=== PATIENT | female | born 1995 | race Two or more races ===

== ENCOUNTER 2019-12-06 13:05 | Inpatient (IN) | payer OTHER ==
[2019-12-06] MEDS ORDERED: BETAMET ACET/BETAMET NA PH 30 MG/5 ML VIAL ONE (15:22)
[2019-12-06] MEDS ORDERED: AMPICILLIN SODIUM 2 GM VIAL ONE (15:23)
[2019-12-06] MEDS ORDERED: MAGNESIUM 4GM/H20 - 4 GM/100 ML IVPB IVPB ONE (15:23)
[2019-12-06] MEDS ORDERED: MAGNESIUM SULFATE 20GM/500ML - 20 GM/500 ML INFUS.BAG ONE (15:23)
[2019-12-06] MEDS ORDERED: AMPICILLIN - 2 GM in SODIUM CHLORIDE 100 ML IVPB ONE (15:43)
[2019-12-06] MEDS ORDERED: MAGNESIUM 4GM/H20 - 4 GM/100 ML IVPB IVPB SCH (15:45)
[2019-12-06] MEDS ORDERED: MAGNESIUM SULF 50% (8.12 MEQ/2 ML-1 GM VIAL) IVPB ONE (15:49)
[2019-12-06] MEDS ORDERED: BETAMET ACET/BETAMET NA PH 30 MG/5 ML VIAL IM ONE (15:49)
--- NOTE | 2019-12-06 15:54 | HP ---
Past Medical History - Primary Care Physician PCP:: Candelario Sprague - Admission Chief Complaint: Pain and spoting History of Present Illness: 24 yo EDC 01/12/2020 EGA 34.5 weeks presents to LD c/o spotting and painful UC Pt has a h/o CD @ 34 weeks for severe PIH on 11/2017 Desires History Source: Patient Limitations to Obtaining History: No Limitations - Past Medical History ...: 2 ...Para: 1 ...Term: 0 ...: 1 ...Spon : 0 ...Induced : 0 ...Living Children: 1 ...LMP: 04/07/19 ... Weeks Gestation by Dates: 34.5 ...EDC by Dates: 12/13/19 - Past Surgical History Past Surgical History: Yes: Hx Myomectomy: No Hx Transabdominal Cerclage: No - Smoking History Smoking history: Never smoked Have you smoked in the past 12 months: No - Alcohol/Substance Use Hx Alcohol Use: No History of Substance Use: reports: None - Social History Usual Living Arrangement: Yes: With Significant Other Do you think of yourself as: Straight/Heterosexual ADL: Independent History of Recent Travel: No Home Medications - Allergies Allergies/Adverse Reactions: Allergies Allergy/AdvReac Type Severity Reaction Status Date / Time No Known Allergies Allergy Verified 12/06/19 16:23 - Home Medications Home Medications: Ambulatory Orders Tablet 1 tab PO DAILY 12/06/19 Family Medical History Family History: Unremarkable Review of Systems - Review of Systems Constitutional: reports: No Symptoms Eyes: reports: No Symptoms HENT: reports: No Symptoms Neck: reports: No Symptoms Cardiovascular: reports: No Symptoms Respiratory: reports: No Symptoms Gastrointestinal: reports: No Symptoms Genitourinary: reports: Pain, Vaginal Bleeding Breasts: reports: No Symptoms Reported Musculoskeletal: reports: No Symptoms Integumentary: reports: No Symptoms Neurological: reports: No Symptoms Endocrine: reports: No Symptoms Hematology/Lymphatic: reports: No Symptoms Psychiatric: reports: No Symptoms 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 - Maternity Vital Signs: Vital Signs Temperature 98.1 F 12/06/19 14:40 Pulse Rate 99 H 12/06/19 14:40 Respiratory Rate 17 12/06/19 14:40 Blood Pressure 105/72 12/06/19 14:40 O2 Sat by Pulse Oximetry (%) - Abdominal Exam/OB Fundal Height: 35 Number of Fetuses: Single Presentation: Vertex Contractions: Yes Regularity: Irregular Intensity: Mild/Mod Monitor Mode: External Heart Rate (range): 140 Heart Rate Location: [facility] Category: I Accelerations: Uniform Decelerations: None - Vaginal Exam/OB Vaginal Bleeding: Light Dilatation (cm): 1 Effacement (%): 100 Amniotic Membrane Status: Intact Station: -1 - 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 Musculoskeletal: Yes: WNL Extremities: Yes: WNL Edema: No Integumentary: Yes: WNL ...Motor Strength: WNL Psychiatric: Yes: WNL Hemorrhage Risk Assessment - Risk Factors Medium Risk Factors: Yes: Prior , uterine surgery,or multiple laparotomies Risk Score: 1 Risk Level: Medium Risk Problem List - Problems (1) 34 weeks gestation of Code(s): Z3A.34 - 34 WEEKS GESTATION OF (2) Previous delivery, antepartum condition or complication Code(s): O34.219 - MATERNAL CARE FOR UNSP TYPE SCAR FROM PREVIOUS DEL (3) High risk due to history of labor in third trimester Code(s): O09.213 - SUPRVSN OF PREG W HISTORY OF PRE-TERM LABOR, THIRD TRIMESTER Assessment/Plan Admit to LD [place] with Magnesium sulfate - bolus 4gm, continue 2 gm Steroids Antibiotic Official sono - weight, localization of placenta Desires
[2019-12-06] MEDS ORDERED: ELECTROLYTE-148 SOLN 1,000 ML IV SCH ×2 (16:00→19:45)
[2019-12-06 16:43] VITALS: BMI 29.2
[2019-12-06 17:06] LABS: BASO % 0.2 % (0-2.0); EOS % 0.1 % (0-4.5); HEMATOCRIT 43.4 % (32.4-45.2); HEMOGLOBIN 14.8 GM/dL (10.7-15.3); LYMPH % 19.2 % (8-40); MCH 30.7 pg (25.7-33.7); MCHC 34.1 g/dl (32.0-36.0); MEAN CELL VOLUME 89.9 fl (80-96); MEAN PLT VOLUME 10.1 fl (7.5-11.1); MONO % 7.3 % (3.8-10.2); NEUT % 73.2 % (42.8-82.8); PLATELET COUNT 130 K/MM3 (134-434); RBC 4.83 M/mm3 (3.60-5.2); RDW 13.3 % (11.6-15.6)
[2019-12-06 17:11] LABS: INR 0.86 (0.83-1.09); PROTHROMBIN TIME (PATIENT) 10.1 SEC (9.7-13.0)
[2019-12-06 17:14] LABS: ACTIVATED PTT 31.1 SECONDS (25.2-36.5)
[2019-12-06] MEDS ORDERED: MAGNESIUM SULFATE 20GM/500ML - 20 GM/500 ML INFUS.BAG IVPB SCH (17:15)
[2019-12-06 17:27] LABS: BLOOD UREA NITROGEN 9.2 mg/dL (7-18); CALCIUM 7.5 mg/dL (8.5-10.1); CREATININE 0.5 mg/dL (0.55-1.3); POTASSIUM 4.8 mmol/L (3.5-5.1)
[2019-12-06] MEDS: AMPICILLIN - 1 GM in SODIUM CHLORIDE 100 ML IVPB SCH (20:20)
[2019-12-06] MEDS ORDERED: AMPICILLIN SODIUM 1 GM VIAL ONE (20:22)
--- NOTE | 2019-12-06 22:44 | PN ---
Progress Note (short form) - Note Progress Note: Patient comfortable in bed. VSS, afebrile EFM - Baseline 130/min, moderate variability, accelerations, no decelerations Tocos - irritability Pelvic - deferred. Plan -Late gestation with labor Prior delivery, desires vaginal after delivery Awaiting second dose of steroid Continue management.
[2019-12-07] MEDS ORDERED: AMPICILLIN SODIUM 1 GM VIAL ONE ×6 (00:01→21:48)
[2019-12-07] MEDS ORDERED: MAGNESIUM SULFATE 20GM/500ML - 20 GM/500 ML INFUS.BAG ONE (01:43)
[2019-12-07] MEDS: AMPICILLIN - 1 GM in SODIUM CHLORIDE 100 ML IVPB SCH ×6 (04:00→20:45)
--- NOTE | 2019-12-07 06:37 | PN ---
Progress Note (short form) - Note Progress Note: Called to evaluate patient because of change in baseline. I came to see patient; she's sleeping comfortably in bed. BP : 90 / 49 EFM - Baseline 110 to 120 Bpm, moderate variability, accelerations, occasional variable decelerations Tocos - No contractions Pelvic - 1/70/ -2 Bloody discharge ASS / Plan - Late gestation with labor Prior delivery, desires vaginal after delivery IV bolus Continue close monitoring
[2019-12-07] MEDS ORDERED: MAGNESIUM SULFATE 20GM/500ML - 20 GM/500 ML INFUS.BAG IV SCH (10:30)
--- NOTE | 2019-12-07 10:43 | PN ---
Progress Note (short form) - Note Progress Note: Sent by Dr Sprague for contractions per sign out Patient without complaints, no contractions Due for second dose of betamethasone at 3.15pm OE- VS- wnl Lungs clear Abdomen soft nontender, gravid FHR- 120, moderate variability, positive accelerations, no decelerations, cat1 [place]- no contractions Reflexes2+ VE-- 1CM/60%/-2, intact US- bpp-8/8, YVETTE- 12.4, EFW- 2472 gm A/P- IUP@ 34w6d, Thrombocytopenia in Mag level pending Magnesium stopped Close monitoring CBC,CMP,UA drawn close observation Urine output adequate per nurse,1600cc voided for last shift per nurse,
[2019-12-07] MEDS ORDERED: DEXTROSE 5%-LACTATED RINGERS 1,000 ML IV SCH (10:45)
[2019-12-07 10:48] LABS: BASO % 0.1 % (0-2.0); HEMOGLOBIN 12.8 GM/dL (10.7-15.3); LYMPH % 18.5 % (8-40); MCH 30.9 pg (25.7-33.7); MCHC 34.6 g/dl (32.0-36.0); MEAN CELL VOLUME 89.1 fl (80-96); MEAN PLT VOLUME 9.3 fl (7.5-11.1); MONO % 4.1 % (3.8-10.2); NEUT % 77.3 % (42.8-82.8); PLATELET COUNT 147 K/MM3 (134-434); RBC 4.15 M/mm3 (3.60-5.2); RDW 13.2 % (11.6-15.6); WHITE BLOOD COUNT 5.1 K/mm3 (4.0-10.0)
[2019-12-07 11:47] LABS: ALBUMIN 2.2 g/dl (3.4-5.0); BILIRUBIN,TOTAL 0.4 mg/dL (0.2-1); BLOOD UREA NITROGEN 8.2 mg/dL (7-18); CREATININE 0.5 mg/dL (0.55-1.3); POTASSIUM 3.4 mmol/L (3.5-5.1); TOT PROT 5.5 g/dl (6.4-8.2)
[2019-12-07 11:50] LABS: CALCIUM 6.2 mg/dL (8.5-10.1)
[2019-12-07 12:33] LABS: BASO % 0.1 % (0-2.0); HEMATOCRIT 36.9 % (32.4-45.2); HEMOGLOBIN 12.7 GM/dL (10.7-15.3); MCH 30.7 pg (25.7-33.7); MCHC 34.4 g/dl (32.0-36.0); MEAN CELL VOLUME 89.2 fl (80-96); MEAN PLT VOLUME 9.3 fl (7.5-11.1); NEUT % 77.9 % (42.8-82.8); PLATELET COUNT 142 K/MM3 (134-434); RBC 4.14 M/mm3 (3.60-5.2); WHITE BLOOD COUNT 5.6 K/mm3 (4.0-10.0)
[2019-12-07 12:56] LABS: EPI CELLS 4 /uL (0-25.1); HYALINE CASTS 1 /uL (0-3.1); URINE APPEARANCE CLEAR; URINE BACTERIA 10 /uL (0-1359); URINE BILIRUBIN NEGATIVE (NEGATIVE); URINE COLOR YELLOW; URINE GLUCOSE (UA) NEGATIVE (NEGATIVE); URINE KETONE 1+ (NEGATIVE); URINE LEUK ESTERASE NEGATIVE (NEGATIVE); URINE NITRITE NEGATIVE (NEGATIVE); URINE PROTEIN NEGATIVE (NEGATIVE); URINE RBC 4 /uL (0-23.9); URINE UROBILINOGEN 0.2 mg/dL (0.2-1.0); URINE WBC 1 /uL (0-25.8)
[2019-12-07 13:08] LABS: ALBUMIN 2.2 g/dl (3.4-5.0); BILIRUBIN,TOTAL 0.4 mg/dL (0.2-1); BLOOD UREA NITROGEN 8.1 mg/dL (7-18); CREATININE 0.5 mg/dL (0.55-1.3); MAGNESIUM 4.6 mg/dL (1.8-2.4); POTASSIUM 3.5 mmol/L (3.5-5.1); TOT PROT 5.4 g/dl (6.4-8.2)
[2019-12-07 13:26] LABS: CALCIUM 6.5 mg/dL (8.5-10.1)
[2019-12-07] MEDS ORDERED: CALCIUM GLUCONATE 10% - 1,000 MG/10 ML VIAL IVPUSH ONE (14:33)
--- NOTE | 2019-12-07 15:28 | PN ---
Teaching Attending Note Name of Resident: Vincent Moura ATTENDING PHYSICIAN STATEMENT I saw and evaluated the patient. I reviewed the resident's note and discussed the case with the resident. I agree with the resident's findings and plan as documented. SUBJECTIVE: 24yo 34 weeks who presented originally due to contractions that were occurring. Patient was admitted to [facility] and was started on Mg via IV due to her premature contractions. On routine Chem-10 she was noted to have hypocalcemia with hypoalbuminemia and so we were consulted for medical evaluation. Patient at time of exam had no complaints. Her contractions had ceased and she feels markedly better. Pt was found to be COVID-19 PCR positive, however she is asymptomatic at this time. Patient denies any fever/chills, cough, SOB, CP, palpitations, abdominal pain, diarrhea/constipation, muscle cramping or twitching, numbness/tingling, weakness. PMHX: As above PSHx: Prior SoHX: No tobacco, alcohol, illicit substances FamHx: No thyroid, parathyroid, or bone pathology in family. OBJECTIVE: Vital Signs Temperature 98 F 12/07/19 17:00 Pulse Rate 95 H 12/07/19 18:00 Respiratory Rate 20 12/07/19 18:00 Blood Pressure 109/67 12/07/19 18:00 O2 Sat by Pulse Oximetry (%) 98 12/07/19 18:00 PE: Gen: NAD, awake, alert, oriented x3 HEENT: NC/AT, EOMI, NALLELY, MMM LUNG: CTA b/l without wheezes/rales CARD: RRR no murmurs ABD: Gravid, + BS, no TTP, no guarding EXT: No edema, no calf tenderness Neuro: Nonfocal without any tremoring CBC, BMP 12/07/19 12:05 12/07/19 12:05 ASSESSMENT AND PLAN: Hypocalcemia Hypoalbuminemia COVID-19 Positivity Contractions --Correct Ca for hypoalbuminemia is 7.9 --Replete 1gm Calcium gluconate IVPB --Ordered PTH and Vitamin D level for complete picture for r/o hypoparathyroidism --Recommend discontinuation of IVF if OB agrees to avoid dilution of Ca lvl --Can repeat Ca tomorrow --Maintain Isolation due to COVID positivity; asympomatic --Rest per [facility] service Discussed with Dr. Noriega We will continue to follow the patient. DO Caterina Grewal
[2019-12-07] MEDS ORDERED: BETAMET ACET/BETAMET NA PH 30 MG/5 ML VIAL IM ONE (16:30)
--- NOTE | 2019-12-07 16:51 | CONSULT ---
Consultation: REQUESTING PROVIDER: Dr. Noriega CONSULT REQUEST: We have been asked to medically evaluate this patient for (hypocalcemia). HISTORY OF PRESENT ILLNESS: 24 F at 34 weeks , previous c section, presented to the hospital for premature contractions w/ bloody discharge. Upon arrival pt was stable but had premature contraction and was given magnesium IV, steriods and ampicillin. Baseline HR was 110 to 120 Bpm, moderate variability, accelerations, occasional variable decelerations. Pt was being managed for Late gestation with labor. Laboratory results showed hypocalcemia to 6.2 and medical consult was placed. Denies f/c/n/v/d/sob, cp, abdominal pain, numbness or tingling. REVIEW OF SYSTEMS: Denies f/c/n/v/d/sob, cp, abdominal pain, numbness or tingling. PHYSICAL EXAMINATION Vital Signs - 24 hr 12/06/19 12/06/19 12/06/19 17:00 18:00 19:00 Temperature 98.2 F 97.9 F 98.1 F Pulse Rate 82 88 92 H Respiratory 20 20 20 Rate Blood Pressure 108/63 113/70 115/68 GENERAL: Awake, alert, and fully oriented, in no acute distress. EYES: Pupils equal, round and reactive to light, extraocular movements intact, sclera anicteric, conjunctiva clear. EARS, NOSE, THROAT: Moist mucous membranes. Chvosteks sign negative, trusseau sign negative NECK: Normal range of motion, supple without lymphadenopathy, JVD, or masses. LUNGS: Breath sounds equal, clear to auscultation bilaterally. No wheezes, and no crackles. HEART: Regular rate and rhythm, normal S1 and S2 without murmur, rub or gallop. ABDOMEN: Soft, nontender, not distended, normoactive bowel sounds, no guarding, no rebound, no masses. heart rate monitor in place MUSCULOSKELETAL: No CVA tenderness. UPPER EXTREMITIES: 2+ pulses, warm, well-perfused.No peripheral edema. LOWER EXTREMITIES: 2+ pulses, warm, well-perfused. No calf tenderness. No peripheral edema. NEUROLOGICAL: Cranial nerves II-XII intact. PSYCHIATRIC: Cooperative. Good eye contact. Appropriate mood and affect. SKIN: Warm, dry, normal turgor, no rashes or lesions noted. Laboratory Results - last 24 hr 12/06/19 12/06/19 12/06/19 16:00 16:00 16:00 WBC 5.0 RBC 4.83 Hgb 14.8 Hct 43.4 MCV 89.9 MCH 30.7 MCHC 34.1 RDW 13.3 Plt Count 130 L MPV 10.1 Absolute Neuts (auto) 3.7 Neutrophils % 73.2 Lymphocytes % 19.2 Monocytes % 7.3 Eosinophils % 0.1 Basophils % 0.2 Nucleated RBC % 1 H PT with INR 10.10 INR 0.86 PTT (Actin FS) 31.1 Sodium 138 Potassium 4.8 Chloride 108 H Carbon Dioxide 21 Anion Gap 10 BUN 9.2 Creatinine 0.5 L Est GFR (CKD-EPI)AfAm 157.00 Est GFR (CKD-EPI)NonAf 135.46 Random Glucose 66 L Calcium 7.5 L Magnesium Total Bilirubin AST ALT Alkaline Phosphatase Total Protein Albumin Urine Color Urine Appearance Urine pH Ur Specific [place] Urine Protein Urine Glucose (UA) Urine Ketones Urine Blood Urine Nitrite Urine Bilirubin Urine Urobilinogen Ur Leukocyte Esterase Urine WBC (Auto) Urine RBC (Auto) Urine Casts (Auto) U Epithel Cells (Auto) Urine Bacteria (Auto) Syphilis Serology COVID-19 (JOSE) HIV Ag/Ab Combo Qual Blood Type Antibody Screen 12/06/19 12/06/19 12/06/19 16:00 16:00 16:20 WBC RBC Hgb Hct MCV MCH MCHC RDW Plt Count MPV Absolute Neuts (auto) Neutrophils % Lymphocytes % Monocytes % Eosinophils % Basophils % Nucleated RBC % PT with INR INR PTT (Actin FS) Sodium Potassium Chloride Carbon Dioxide Anion Gap BUN Creatinine Est GFR (CKD-EPI)AfAm Est GFR (CKD-EPI)NonAf Random Glucose Calcium Magnesium Total Bilirubin AST ALT Alkaline Phosphatase Total Protein Albumin Urine Color Urine Appearance Urine pH Ur Specific [place] Urine Protein Urine Glucose (UA) Urine Ketones Urine Blood Urine Nitrite Urine Bilirubin Urine Urobilinogen Ur Leukocyte Esterase Urine WBC (Auto) Urine RBC (Auto) Urine Casts (Auto) U Epithel Cells (Auto) Urine Bacteria (Auto) Syphilis Serology Non-reactive COVID-19 (JOSE) Detected H HIV Ag/Ab Combo Qual Negative Blood Type O POSITIVE Antibody Screen Negative 12/06/19 12/07/19 12/07/19 20:20 02:00 08:08 WBC RBC Hgb Hct MCV MCH MCHC RDW Plt Count MPV Absolute Neuts (auto) Neutrophils % Lymphocytes % Monocytes % Eosinophils % Basophils % Nucleated RBC % PT with INR INR PTT (Actin FS) Sodium Potassium Chloride Carbon Dioxide Anion Gap BUN Creatinine Est GFR (CKD-EPI)AfAm Est GFR (CKD-EPI)NonAf Random Glucose Calcium Magnesium 5.7 H 6.7 H 6.9 H Total Bilirubin AST ALT Alkaline Phosphatase Total Protein Albumin Urine Color Urine Appearance Urine pH Ur Specific [place] Urine Protein Urine Glucose (UA) Urine Ketones Urine Blood Urine Nitrite Urine Bilirubin Urine Urobilinogen Ur Leukocyte Esterase Urine WBC (Auto) Urine RBC (Auto) Urine Casts (Auto) U Epithel Cells (Auto) Urine Bacteria (Auto) Syphilis Serology COVID-19 (JOSE) HIV Ag/Ab Combo Qual Blood Type Antibody Screen 12/07/19 12/07/19 12/07/19 10:30 10:30 11:00 WBC 5.1 RBC 4.15 Hgb 12.8 Hct 37.0 MCV 89.1 MCH 30.9 MCHC 34.6 RDW 13.2 Plt Count 147 MPV 9.3 Absolute Neuts (auto) 3.9 Neutrophils % 77.3 Lymphocytes % 18.5 Monocytes % 4.1 Eosinophils % 0.0 D Basophils % 0.1 Nucleated RBC % 0 PT with INR INR PTT (Actin FS) Sodium 140 Potassium 3.4 L Chloride 110 H Carbon Dioxide 16 L Anion Gap 15 BUN 8.2 Creatinine 0.5 L Est GFR (CKD-EPI)AfAm 157.00 Est GFR (CKD-EPI)NonAf 135.46 Random Glucose 118 H Calcium 6.2 L* Magnesium Total Bilirubin 0.4 AST 47 H ALT 47 Alkaline Phosphatase 208 H Total Protein 5.5 L Albumin 2.2 L Urine Color Yellow Urine Appearance Clear Urine pH 6.0 Ur Specific [place] 1.011 Urine Protein Negative Urine Glucose (UA) Negative Urine Ketones 1+ H Urine Blood 1+ H Urine Nitrite Negative Urine Bilirubin Negative Urine Urobilinogen 0.2 Ur Leukocyte Esterase Negative Urine WBC (Auto) 1 Urine RBC (Auto) 4 Urine Casts (Auto) 1 U Epithel Cells (Auto) 4 Urine Bacteria (Auto) 10 Syphilis Serology COVID-19 (JOSE) HIV Ag/Ab Combo Qual Blood Type Antibody Screen 12/07/19 12/07/19 12:05 12:05 WBC 5.6 RBC 4.14 Hgb 12.7 Hct 36.9 MCV 89.2 MCH 30.7 MCHC 34.4 RDW 13.0 Plt Count 142 MPV 9.3 Absolute Neuts (auto) 4.3 Neutrophils % 77.9 Lymphocytes % 17.0 Monocytes % 5.0 Eosinophils % 0.0 Basophils % 0.1 Nucleated RBC % 0 PT with INR INR PTT (Actin FS) Sodium 140 Potassium 3.5 Chloride 109 H Carbon Dioxide 19 L Anion Gap 12 BUN 8.1 Creatinine 0.5 L Est GFR (CKD-EPI)AfAm 157.00 Est GFR (CKD-EPI)NonAf 135.46 Random Glucose 125 H Calcium 6.5 L* Magnesium 4.6 H Total Bilirubin 0.4 AST 41 H ALT 46 Alkaline Phosphatase 205 H Total Protein 5.4 L Albumin 2.2 L Urine Color Urine Appearance Urine pH Ur Specific [place] Urine Protein Urine Glucose (UA) Urine Ketones Urine Blood Urine Nitrite Urine Bilirubin Urine Urobilinogen Ur Leukocyte Esterase Urine WBC (Auto) Urine RBC (Auto) Urine Casts (Auto) U Epithel Cells (Auto) Urine Bacteria (Auto) Syphilis Serology COVID-19 (JOSE) HIV Ag/Ab Combo Qual Blood Type Antibody Screen Active Medications Generic Name Dose Route Start Last Admin Trade Name Freq PRN Reason Stop Dose Admin Ampicillin Sodium 1 gm/ Sodium 100 mls @ 200 mls/hr 12/06/19 20:00 12/07/19 16:00 Chloride IVPB 200 mls/hr Q4H MOOK Administration Magnesium Sulfate 4 gm in 100 mls @ 200 mls/hr 12/06/19 15:45 12/06/19 15:50 Magnesium 4gm/H20 - IVPB 200 mls/hr ASDIR MOOK Administration Magnesium Sulfate 20 gm in 500 mls @ 25 mls/hr 12/06/19 17:15 12/06/19 16:20 Magnesium Sulfate 20gm/500ml - IVPB 50 mls/hr ASDIR MOOK Administration Magnesium Sulfate 20 gm in 500 mls @ 25 mls/hr 12/07/19 10:30 12/07/19 07:30 Magnesium Sulfate 20gm/500ml - IV 25 mls/hr ASDIR MOOK Administration Dextrose/Lactated Ringer's 1,000 mls @ 125 mls/hr 12/07/19 10:45 12/07/19 10:30 D5-Lr - IV 125 mls/hr ASDIR MOOK Administration ASSESSMENT/PLAN: 24 F at 34 weeks , previous c section, presented to the hospital for premature contractions w/ bloody discharge. Upon arrival pt was stable but had premature contraction and was given magnesium IV, steriods and ampicillin. Baseline HR was 110 to 120 Bpm, moderate variability, accelerations, occasional variable decelerations. Pt was being managed for Late gestation with labor. Laboratory results showed hypocalcemia to 6.2 and medical consult was placed. Denies f/c/n/v/d/sob, cp, abdominal pain, numbness or tingling. COVID positive. Upon evaluation, in the setting of negative physical exam finding and improving calcium levels, hypocalcemia is not concerning at this time. Likely 2/2 to steriod induced hypocalcemia via urinary excretion vs parathyroid disease. Will cont to monitor calcium levels, and supplement calcium gluconate for now. Will PTH and vit D to evaluate for parathyroid causes of hypocalcemia. Limit IVF as this can lower calcium levels. Will r/p calcium levels. Dispo: We will continue to follow the patient. Thank you for this consultative opportunity. ATTENDING PHYSICIAN STATEMENT I saw and evaluated the patient. I reviewed the resident's note and discussed the case with the resident. I agree with the resident's findings and plan as documented. SUBJECTIVE: OBJECTIVE: ASSESSMENT AND PLAN:
[2019-12-07] MEDS ORDERED: CALCIUM GLUCONATE 10% - 1,000 MG/10 ML VIAL IVPB ONE (16:56)
--- NOTE | 2019-12-07 18:27 | PN ---
Progress Note (short form) - Note Progress Note: Patient without complaints, labs reviewed Internal medicine on consult for low calcium Magnesium d/jay jay s/p 2doses of betamethasone Vs wnl FHR-130, positive accelerations, no declerations, moderate variability, cat1 [place]- no contractions Plan- continue monitoring, close observation. IM to follow for low calcium levels
[2019-12-08] MEDS ORDERED: AMPICILLIN SODIUM 1 GM VIAL ONE ×4 (00:05→16:30)
[2019-12-08] MEDS: AMPICILLIN - 1 GM in SODIUM CHLORIDE 100 ML IVPB SCH ×5 (00:20→16:30)
[2019-12-08 08:48] LABS: ALBUMIN 2.4 g/dl (3.4-5.0); BILIRUBIN,TOTAL 0.3 mg/dL (0.2-1); BLOOD UREA NITROGEN 12.2 mg/dL (7-18); CALCIUM 8.3 mg/dL (8.5-10.1); CREATININE 0.6 mg/dL (0.55-1.3); POTASSIUM 4.1 mmol/L (3.5-5.1)
[2019-12-08] MEDS ORDERED: CHOLECALCIFEROL (VIT D3) 1,000 UNIT (25 MCG) TABLET PO SCH (12:15)
[2019-12-08] MEDS ORDERED: CHOLECALCIFEROL (VIT D3) 1,000 UNIT (25 MCG) TABLET PO ONE (13:06)
--- NOTE | 2019-12-08 13:17 | PN ---
Progress Note (short form) - Note Progress Note: Patient resting comfortably FHR- 130, moderate variability, positive accelerations, no decelerations [place]- no contractions, contractions in earlier part of strip Followed up by Internal medicine Reevaluated by contract lead physician Dr Sprague this PM Nurse informed
--- NOTE | 2019-12-08 13:29 | PN ---
Teaching Attending Note Name of Resident: Darlyn Downey ATTENDING PHYSICIAN STATEMENT I saw and evaluated the patient. I reviewed the resident's note and discussed the case with the resident. I agree with the resident's findings and plan as documented. SUBJECTIVE: OBJECTIVE: ASSESSMENT AND PLAN:
--- NOTE | 2019-12-08 13:30 | PN ---
Progress Note (short form) - Note Progress Note: SUBJECTIVE: Feeling much better - no further abdominal discomfort/contractions. OBJECTIVE: Afebrile, Hemodynamically Stable. Last Vital Signs Temp Pulse Resp BP Pulse Ox 98.9 F 92 H 20 99/6 L 97 12/08/19 12:00 12/08/19 12:00 12/08/19 12:00 12/08/19 12:00 12/08/19 06:00 HEENT - Atraumatic, normocephalic. Heart - S1, S2, RRR Lungs - clear to auscultation Abdomen - Gravid abdomen, non-tender. Extremities - no edema, no calf tenderness. Neuro - AAO x 3. Tone/Power normal all extremities. Laboratory Results - last 24 hr 12/06/19 12/07/19 12/08/19 16:20 12:05 07:37 Sodium 140 Potassium 4.1 Chloride 110 H Carbon Dioxide 21 Anion Gap 9 BUN 12.2 Creatinine 0.6 Est GFR (CKD-EPI)AfAm 147.86 Est GFR (CKD-EPI)NonAf 127.58 Random Glucose 96 Calcium 6.5 L* 8.3 L Total Bilirubin 0.3 AST 36 ALT 49 Alkaline Phosphatase 228 H Total Protein 6.0 L Albumin 2.4 L COVID-19 (JOSE) Detected H Current Medications Generic Name Dose Route Start Last Admin Trade Name Freq PRN Reason Stop Dose Admin Ampicillin Sodium 1 gm/ Sodium 100 mls @ 200 mls/hr 12/06/19 20:00 12/08/19 12:00 Chloride IVPB 200 mls/hr Q4H MOOK Administration Home Medications Medication Instructions Recorded Tablet 1 tab PO DAILY 12/06/19 ASSESSMENT AND PLAN: 24 year old female at 35 weeks of gestation, presents wit contractions, found to have Calcium level 6.2 (corrected 7.5). incidentally, COVID positive, but asymptomatic. 1. Hypocalcemia ?sec to Vitamin D Deficiency - improved with IV Ca Gluconate No further symptoms. Contractions halted. Ca today 8.3 Vitamin D 19.5 PTH pending For Calcium and Vitamin D replacement in addition to pre- vitamins. Nephrology evaluated - will arrange for out-patient repeat labs on Monday 12/11 Medically clear for discharge on Vitamin D 1000-2000iU and Calcium 500mg supplementation. 2. COVID positive Asymptomatic. No SOB/fever/cough/hypoxia/myalgia No need for further hospitalization Also recommend Vitamin C 1000mg and Zinc 220mg supplementation. Thank you for the kind consideration of this consultation. Recommendations as above. Repeat Labs will be arranged for Thursday - patient to return to [facility] to have them drawn. Medicine will sign off. Visit type - Emergency Visit Emergency Visit: Yes ED Registration Date: 12/06/19 Care time: The patient presented to the Emergency Department on the above date and was hospitalized for further evaluation of their emergent condition. - New Patient This patient is new to me today: Yes Date on this admission: 12/08/19 - Critical Care Critical Care patient: No - Discharge Referral Referred to [facility] Med P.C.: No
[2019-12-08 16:04] VITALS: TEMP 98.5
--- NOTE | 2019-12-08 18:31 | CONSULT ---
Consult Consult Specialty:: Nephrology Reason for Consultation:: hypocalcemia - History of Present Illness Chief Complaint: presented with contractions and bloody discharge History of Present Illness: Pt is a 24 year old female at 34 weeks who presented with premature contraction and bloody discharge. She was found to be hypocalcemic and I was called to evaluate her. She has previous . SHe denies medical history. SHe says that she feel better today. She did respond to calcium supplements and calcium levels improved. She denies chest pain or palpitations. - History Source History Provided By: Patient - Past Surgical History Past Surgical History: Yes: - Alcohol/Substance Use Hx Alcohol Use: No History of Substance Use: reports: None - Smoking History Smoking history: Never smoked Have you smoked in the past 12 months: No - Social History ADL: Independent History of Recent Travel: No Home Medications - Allergies Allergies/Adverse Reactions: Allergies Allergy/AdvReac Type Severity Reaction Status Date / Time No Known Allergies Allergy Verified 12/06/19 16:23 - Home Medications Home Medications: Ambulatory Orders Tablet 1 tab PO DAILY 12/06/19 Family Medical History Family History: Unremarkable Review of Systems - Review of Systems Constitutional: reports: No Symptoms Eyes: reports: No Symptoms HENT: reports: No Symptoms Neck: reports: No Symptoms Cardiovascular: reports: No Symptoms Respiratory: reports: No Symptoms Gastrointestinal: reports: No Symptoms Genitourinary: reports: No Symptoms Musculoskeletal: reports: No Symptoms Integumentary: reports: No Symptoms Neurological: reports: No Symptoms Endocrine: reports: No Symptoms Hematology/Lymphatic: reports: No Symptoms Psychiatric: reports: No Symptoms 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 Vital Signs: Vital Signs Temperature 98.5 F 12/08/19 16:00 Pulse Rate 88 12/08/19 16:00 Respiratory Rate 20 12/08/19 16:00 Blood Pressure 102/67 12/08/19 16:00 O2 Sat by Pulse Oximetry (%) 97 12/08/19 06:00 Constitutional: Yes: Calm Eyes: Yes: Conjunctiva Clear HENT: Yes: Atraumatic Neck: Yes: Supple Cardiovascular: Yes: S1, S2 Respiratory: Yes: CTA Bilaterally Gastrointestinal: Yes: Soft Renal/: Yes: Other (gravid) Musculoskeletal: Yes: WNL Edema: No Neurological: Yes: Oriented Psychiatric: Yes: Oriented Labs: CBC, BMP 12/07/19 12:05 12/08/19 07:37 Laboratory Tests 12/06/19 12/06/19 12/07/19 16:00 16:20 07:40 Sodium Potassium Carbon Dioxide Creatinine Calcium Albumin PTH Intact Pending PTH Intact Intraop 0 m Urine Protein Syphilis Serology Non-reactive COVID-19 (JOSE) Detected H HIV Ag/Ab Combo Qual Negative 12/07/19 12/07/19 12/07/19 10:30 11:00 12:05 Sodium 140 Potassium 3.4 L Carbon Dioxide 16 L 19 L Creatinine 0.5 L 0.5 L Calcium 6.2 L* 6.5 L* Albumin 2.2 L 2.2 L PTH Intact PTH Intact Intraop 0 m Urine Protein Negative Syphilis Serology COVID-19 (JOSE) HIV Ag/Ab Combo Qual 12/07/19 12/08/19 17:45 07:37 Sodium Potassium Carbon Dioxide 21 Creatinine 0.6 Calcium 8.3 L Albumin 2.4 L PTH Intact Pending PTH Intact Intraop 0 m Pending Urine Protein Syphilis Serology COVID-19 (JOSE) HIV Ag/Ab Combo Qual Problem List - Problems (1) Hypocalcemia Code(s): E83.51 - HYPOCALCEMIA (2) 34 weeks gestation of Code(s): Z3A.34 - 34 WEEKS GESTATION OF Assessment/Plan Current Medications Generic Name Dose Route Start Last Admin Trade Name Zahida PRN Reason Stop Dose Admin Calcium Carbonate 500 mg 12/09/19 10:00 Os-Pietro 500mg - PO DAILY [facility] Cholecalciferol 1,000 unit 12/09/19 10:00 Vitamin D3 - PO DAILY [facility] Ampicillin Sodium 1 gm/ Sodium 100 mls @ 200 mls/hr 12/06/19 20:00 12/08/19 16:30 Chloride IVPB 200 mls/hr Q4H MOOK Administration Zinc Sulfate 220 mg 12/08/19 22:00 Orazinc - PO BID [facility] Impression 1. hypocalcemia 2. 34 weeks 3. permature contraction 4. positive covid results Plan - cont calcium supplements - calcium levels improved (correct for albumin) - will need to follow pth - recommend close follow up of calcium levels - pt is coming back to appointment on Thursday, I gave her a lab slip to have her calcium levels checked - follow up vit d levels as well - discussed with obgyn and medical team - pt seen earlier in the day around noon
[2019-12-08 18:34] VITALS: BP 107/76; PULSE 85
--- NOTE | 2019-12-08 18:48 | DS ---
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ination Vital Signs: Vital Signs Temperature 98.5 F 12/08/19 18:00 Pulse Rate 85 12/08/19 18:00 Respiratory Rate 20 12/08/19 18:00 Blood Pressure 107/76 12/08/19 18:00 O2 Sat by Pulse Oximetry (%) 97 12/08/19 06:00 Constitutional: Yes: Well Nourished Eyes: Yes: WNL HENT: Yes: WNL Neck: Yes: WNL Cardiovascular: Yes: WNL Respiratory: Yes: WNL Gastrointestinal: Yes: WNL Renal/: Yes: WNL Musculoskeletal: Yes: WNL Extremities: Yes: WNL Edema: No Peripheral Pulses WNL: Yes Integumentary: Yes: WNL Neurological: Yes: WNL ...Motor Strength: WNL Psychiatric: Yes: WNL Labs: CBC, BMP 12/07/19 12:05 12/08/19 07:37 Discharge Summary Problems reviewed: Yes Reason For Visit: ADMISSION OF PRELABOR Current Active Problems 34 weeks gestation of (Acute) High risk due to history of labor in third trimester (Acute) Hypocalcemia (Acute) Previous delivery, antepartum condition or complication (Acute) Condition: Stable - Instructions Referrals: Mahi Conti MD [Staff Physician] - Disposition: HOME - Home Medications Comprehensive Discharge Medication List: Ambulatory Orders Tablet 1 tab PO DAILY 12/06/19
--- NOTE | 2019-12-08 18:58 | PN ---
Progress Note (short form) - Note Progress Note: Patient comfortable in bed VSS, afebrile EFM - Baseline 130/min, moderate variability, accelerations, no decelerations Tocos - irritability Pelvic - 1cm/60%/-2 Plan - Late gestation not in labor Completed steroids labor precautions Follow up in clinic on 12/12/19
[2019-12-08] MEDS ORDERED: ZINC SULFATE 220 MG CAPSULE (FP) PO SCH (22:00)
[2019-12-09] MEDS ORDERED: CALCIUM (OYSTER SHELL) 500 MG TABLET (FP) PO SCH (10:00)
[2019-12-09] MEDS ORDERED: CHOLECALCIFEROL (VIT D3) 1,000 UNIT (25 MCG) TABLET PO SCH (10:00)
== END 2019-12-08 19:03 | disposition home or self-care (01) | DRG 563 ==
LOC: JDEL 13:05 → JLDR 15:15
PROVIDERS: ADMIT Obstetrics & Gynecology; ATTEND Obstetrics & Gynecology
DX: O60.03 Preterm labor without delivery, third trimester (principal); Z3A.34 34 weeks gestation of pregnancy; O34.211 Maternal care for low transverse scar from previous cesarean delivery; N85.8 Other specified noninflammatory disorders of uterus; O26.893 Other specified pregnancy related conditions, third trimester; E83.51 Hypocalcemia; U07.1 COVID-19; E88.09 Other disorders of plasma-protein metabolism, not elsewhere classified; E55.9 Vitamin D deficiency, unspecified; O99.113 Other diseases of the blood and blood-forming organs and certain disorders involving the immune mechanism complicating pregnancy, third trimester; D69.6 Thrombocytopenia, unspecified
CPT/HCPCS: 36415; 80048; 80053; 81003; 82306; 82310; 83735; 83970; 85025; 85610; 85730; 86780; 86850; 86900; 86901; 87389; 96372; U0003

== ENCOUNTER 2019-12-09 09:45 | Inpatient (IN) | payer OTHER ==
[2019-12-09] MEDS ORDERED: OXYTOCIN 20 UNITS in 0.9% NS 20 UNIT/1,000 ML INFUS.BAG IV ONE (11:11)
[2019-12-09] MEDS ORDERED: AMPICILLIN SODIUM 2 GM VIAL ONE (11:13)
[2019-12-09] MEDS ORDERED: PCA PUMP NR ONE (11:31)
[2019-12-09] MEDS ORDERED: FENTANYL/BUPIVACAINE/NS/PF - PCEA - 50 ML DISP.SYRIN EP ONE (11:31)
[2019-12-09] MEDS ORDERED: AMPICILLIN - 2 GM in SODIUM CHLORIDE 100 ML IVPB ONE (11:52)
[2019-12-09 11:56] VITALS: BMI 29.2
[2019-12-09] MEDS ORDERED: ELECTROLYTE-148 SOLN 1,000 ML IV SCH (12:00)
[2019-12-09] MEDS ORDERED: AMPICILLIN - 1 GM in SODIUM CHLORIDE 100 ML IVPB SCH (12:00)
--- NOTE | 2019-12-09 12:00 | PN ---
Progress Note (short form) - Note Progress Note: Patient evaluated, Extensive discussion about TOLAC, complications to mother and baby including possibility of rupture uterus, scar dehiscence, blood transfusion, possibility of hysterectomy, ICU admission for baby discussed with patient, Patient understands, verbalized understanding .VE- 6cm/100/0. FHR-140, moderate variability, positive accelerations, no decelerations, interrupted,patient moving with contractions, readjust the monitor [place]- readjust monitor, Nurse aware Inform neonatology Anesthesia aware H and P to follow
[2019-12-09 12:21] LABS: BASO % 0.2 % (0-2.0); HEMATOCRIT 39.4 % (32.4-45.2); HEMOGLOBIN 13.3 GM/dL (10.7-15.3); LYMPH % 8.1 % (8-40); MCH 30.3 pg (25.7-33.7); MCHC 33.6 g/dl (32.0-36.0); MEAN CELL VOLUME 90.2 fl (80-96); MEAN PLT VOLUME 9.3 fl (7.5-11.1); MONO % 4.5 % (3.8-10.2); NEUT % 87.2 % (42.8-82.8); PLATELET COUNT 182 K/MM3 (134-434); RBC 4.37 M/mm3 (3.60-5.2); RDW 13.2 % (11.6-15.6)
[2019-12-09 12:30] LABS: INR 0.88 (0.83-1.09); PROTHROMBIN TIME (PATIENT) 10.4 SEC (9.7-13.0)
[2019-12-09 12:33] LABS: ACTIVATED PTT 30.3 SECONDS (25.2-36.5)
[2019-12-09 12:46] LABS: BLOOD UREA NITROGEN 10.9 mg/dL (7-18); CALCIUM 8.3 mg/dL (8.5-10.1); CREATININE 0.5 mg/dL (0.55-1.3); POTASSIUM 3.7 mmol/L (3.5-5.1)
--- NOTE | 2019-12-09 14:30 | HP ---
Past Medical History - Admission History Source: Patient - Past Medical History ...: 2 ...Para: 1 ...Term: 0 ...: 1 ...Spon : 0 ...Induced : 0 ...Living Children: 1 ...Multiple Gestation: 0 ...LMP: 04/07/19 ... Weeks Gestation by Dates: 35.1 ...EDC by Dates: 01/12/20 - Past Surgical History Past Surgical History: Yes: Hx Myomectomy: No Hx Transabdominal Cerclage: No - Smoking History Smoking history: Never smoked Have you smoked in the past 12 months: No - Alcohol/Substance Use Hx Alcohol Use: No History of Substance Use: reports: None - Social History ADL: Independent History of Recent Travel: No Home Medications - Allergies Allergies/Adverse Reactions: Allergies Allergy/AdvReac Type Severity Reaction Status Date / Time No Known Allergies Allergy Verified 12/06/19 16:23 - Home Medications Home Medications: Ambulatory Orders Tablet 1 tab PO DAILY 12/06/19 Review of Systems - Review of Systems Constitutional: reports: No Symptoms Cardiovascular: reports: No Symptoms Respiratory: reports: No Symptoms Gastrointestinal: reports: No Symptoms 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 - Maternity Vital Signs: Vital Signs Temperature 98.3 F 12/09/19 10:00 Pulse Rate 85 12/09/19 10:00 Respiratory Rate 18 12/09/19 10:00 Blood Pressure 107/65 12/09/19 10:00 O2 Sat by Pulse Oximetry (%) Constitutional: Yes: Well Nourished Cardiovascular: Yes: WNL Lungs: Clear to auscultation - Abdominal Exam/OB Fundal Height: 36 Number of Fetuses: Single Presentation: Vertex Contractions: Yes Regularity: Regular Intensity: Moderate Monitor Mode: External Heart Rate (range): 140 Category: I Accelerations: Uniform - Vaginal Exam/OB Dilatation (cm): 6 Effacement (%): 100 Amniotic Membrane Status: Bulging Presentation: Vertex/Position Station: 0 - Labs Lab Results: CBC, BMP 12/09/19 11:58 12/09/19 11:58 Hemorrhage Risk Assessment - Risk Factors Medium Risk Factors: Yes: Prior , uterine surgery,or multiple laparotomies Risk Score: 1 Risk Level: Medium Risk Problem List - Problems (1) Previous delivery, antepartum condition or complication Code(s): O34.219 - MATERNAL CARE FOR UNSP TYPE SCAR FROM PREVIOUS DEL (2) 35 weeks gestation of Code(s): Z3A.35 - 35 WEEKS GESTATION OF (3) Encounter for trial of labor Code(s): TWQ8154 - Assessment/Plan [id number] 2 35w1d,previous csection,desires , Risks benefits discussed with patient at health center by primary provider and also discussed on labor and delivery, patient understands, verbalised understanding. Vp [employer]# [id number] Informed and shard decision made, consent obtained.Patient agreed to proceed with vaginal delivery Admit to labor and delivery labs Covid positive, precautions discussed Trial of labor During intrapartum course, AROM done, clear fluid,FSE placed, variable decelerations noticed.oxygen given Abdomen soft, nontender, no scar tenderness Patient fully dilated, having urge to push, pushing. uneventful, Uterus well contracted,close monitoring, Nurse aware. Vaginal delivery note to follow.
--- NOTE | 2019-12-09 14:53 | PN ---
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 patient pushing. Spontaneous vaginal delivery of a baby girl in cephalic presentation. baby delivered atraumatically, nose and mouth suctioned, cord clamped and cut, cord gases sent, cord blood sent, pitocin started.Placenta delivered completely and intact, placenta to pathology. First degree midline and lateral perineal lacerations repaired with 2.0 chromic. Hemostasis confirmed. count correct. Transfer to maternity when stable
[2019-12-09 15:52] LABS: CORD PCO2 39.8 mmHg (30-78); CORD pH 7.296 (7.14-7.44)
[2019-12-09 15:54] LABS: CORD BASE EXCESS -5.6 mmol/L (0-2); CORD HCO3 21.5 mmHg (20-29); CORD PCO2 47.9 mmHg (30-78); CORD pH 7.27 (7.14-7.44)
[2019-12-09] MEDS ORDERED: ACETAMINOPHEN 325 MG TABLET (FP) PO PRN (15:54)
[2019-12-09] MEDS ORDERED: BISACODYL 10 MG SUPP.RECT RC PRN (15:54)
[2019-12-09] MEDS ORDERED: oxyCODONE HCL 5 MG TABLET PO PRN ×2 (15:54→16:20)
[2019-12-09] MEDS ORDERED: WITCH HAZEL 50% (TUCKS) 40 PAD/JAR PAD TP PRN (15:54)
[2019-12-09] MEDS ORDERED: METHYLERGONOVINE MALEATE 0.2 MG/1 ML AMP IM PRN (15:54)
[2019-12-09] MEDS ORDERED: BENZOCAINE 28 GM HEMORRHOIDAL OINTMENT TP PRN (15:54)
[2019-12-09] MEDS ORDERED: BENZOCAINE 20% 57 GM BOTTLE TP PRN (15:54)
[2019-12-09] MEDS ORDERED: ACETAMINOPHEN 1000 MG/100 ML VIAL (NON FORMULARY) IVPB ONE (15:57)
[2019-12-09] MEDS ORDERED: D5W-LR W/ 20 UNITS OXYTOCIN 1,000 ML IV SCH (16:00)
[2019-12-09] MEDS ORDERED: OXYTOCIN 20 UNITS in 0.9% NS 20 UNIT/1,000 ML INFUS.BAG IV SCH (16:19)
[2019-12-10 09:20] LABS: BASO % 0.1 % (0-2.0); EOS % 0.1 % (0-4.5); HEMATOCRIT 40.2 % (32.4-45.2); HEMOGLOBIN 13.8 GM/dL (10.7-15.3); LYMPH % 10.3 % (8-40); MCH 30.7 pg (25.7-33.7); MCHC 34.3 g/dl (32.0-36.0); MEAN CELL VOLUME 89.6 fl (80-96); MEAN PLT VOLUME 9.1 fl (7.5-11.1); MONO % 4.4 % (3.8-10.2); NEUT % 85.1 % (42.8-82.8); PLATELET COUNT 193 K/MM3 (134-434); RBC 4.48 M/mm3 (3.60-5.2); RDW 13.2 % (11.6-15.6); WHITE BLOOD COUNT 13.2 K/mm3 (4.0-10.0)
[2019-12-10] MEDS: PRENATAL VITAMINS W/ FOLIC ACID TABLET (FP) PO SCH (09:36)
[2019-12-10] MEDS ORDERED: DIPHTH,PERTUSS(ACELL),TET 0.5 ML DISP.SYRIN IM ONE (10:00)
--- NOTE | 2019-12-10 12:19 | PN ---
Post Progress Note Post Day: 1 Type of Delivery: Vital Signs: Vital Signs Temperature 99.2 F 12/10/19 05:30 Pulse Rate 93 H 12/10/19 05:30 Respiratory Rate 18 12/10/19 05:30 Blood Pressure 102/55 L 12/10/19 05:30 O2 Sat by Pulse Oximetry (%) 100 12/10/19 05:30 Breast Exam: Yes: Soft Uterus: Yes: Fundus Firm, Fundus below umbilicus, Non-tender Abdomen/GI: Yes: Abdomen soft, Tolerating PO Lochia: Yes: Rubra Lochia, amount: Small Activity: Ambulating - Labs Labs: CBC WBC 13.2 K/mm3 (4.0-10.0) H 12/10/19 08:45 RBC 4.48 M/mm3 (3.60-5.2) 12/10/19 08:45 Hgb 13.8 GM/dL (10.7-15.3) 12/10/19 08:45 Hct 40.2 % (32.4-45.2) 12/10/19 08:45 MCV 89.6 fl (80-96) 12/10/19 08:45 MCH 30.7 pg (25.7-33.7) 12/10/19 08:45 MCHC 34.3 g/dl (32.0-36.0) 12/10/19 08:45 RDW 13.2 % (11.6-15.6) 12/10/19 08:45 Plt Count 193 K/MM3 (134-434) 12/10/19 08:45 MPV 9.1 fl (7.5-11.1) 12/10/19 08:45 Absolute Neuts (auto) 11.2 K/mm3 (1.5-8.0) H 12/10/19 08:45 Neutrophils % 85.1 % (42.8-82.8) H 12/10/19 08:45 Lymphocytes % 10.3 % (8-40) D 12/10/19 08:45 Monocytes % 4.4 % (3.8-10.2) 12/10/19 08:45 Eosinophils % 0.1 % (0-4.5) D 12/10/19 08:45 Basophils % 0.1 % (0-2.0) 12/10/19 08:45 Nucleated RBC % 0 % (0-0) 12/10/19 08:45 Assessment/Plan S/P , ppd # 1 For Infectious disease consultation Continue management.
[2019-12-10] MEDS ORDERED: SENNOSIDES/DOCUSATE COMBO (SENNA PLUS) TABLET (UD) PO PRN (22:00)
[2019-12-10] MEDS ORDERED: ceFAZolin 2 GRAM PREMIX BAG IVPB ONE (22:45)
[2019-12-11 07:52] LABS: EPI CELLS 8 /uL (0-25.1); HYALINE CASTS 0 /uL (0-3.1); URINE APPEARANCE CLEAR; URINE BACTERIA 14 /uL (0-1359); URINE BILIRUBIN NEGATIVE (NEGATIVE); URINE COLOR YELLOW; URINE GLUCOSE (UA) NEGATIVE (NEGATIVE); URINE KETONE NEGATIVE (NEGATIVE); URINE LEUK ESTERASE NEGATIVE (NEGATIVE); URINE NITRITE NEGATIVE (NEGATIVE); URINE PROTEIN NEGATIVE (NEGATIVE); URINE RBC 85 /uL (0-23.9); URINE UROBILINOGEN 0.2 mg/dL (0.2-1.0); URINE WBC 6 /uL (0-25.8)
[2019-12-11] MEDS: CEFAZOLIN 1 GM/D5W 1 GM/50 ML BAG IVPB SCH ×2 (08:13→15:25)
[2019-12-11] MEDS: PRENATAL VITAMINS W/ FOLIC ACID TABLET (FP) PO SCH (10:20)
--- NOTE | 2019-12-11 13:44 | PN ---
Progress Note (short form) - Note Progress Note: ID CONSULT DICTATED COVID-19 + ASYMPTOMATIC S/P NO TX FOR COVID-19 ADVISED AT THIS TIME OK FOR DISCHARGE HOME
[2019-12-11 15:25] VITALS: BP 115/62; PULSE 95; TEMP 98.5
--- NOTE | 2019-12-11 16:38 | DS ---
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 Vital Signs: Vital Signs Temperature 98.5 F 12/11/19 14:00 Pulse Rate 95 H 12/11/19 14:00 Respiratory Rate 20 12/11/19 14:00 Blood Pressure 115/62 12/11/19 14:00 O2 Sat by Pulse Oximetry (%) 98 12/11/19 14:00 Constitutional: Yes: Well Nourished Cardiovascular: Yes: WNL Respiratory: Yes: WNL Gastrointestinal: Yes: WNL Uterus: Yes: Firm Breast(s): Yes: WNL Labs: CBC, BMP 12/10/19 08:45 12/09/19 11:58 Delivery - Delivery Type of Anesthesia: Local Episiotomy/Laceration: 1st degree EBL (cc): 300 Delivery, Single - Stages of Labor Date 1st Stage Initiatied: 12/09/19 Time 1st Stage Initiated: 01:00 Date 2nd Stage Initiated: 12/09/19 Time 2nd Stage Initiated: 13:15 Date of Delivery: 12/09/19 Time of Delivery: 13:47 Time Placenta Delivered: 13:53 Placenta: Yes: Spontaneous - Condition of Pl Sql Developer/Final Inspector And Tester Present: Yes Name: Justice Leram Infant Gender: Female Weight: 2.58 kg Position: Left, OA Total Hours ROM (Hrs/Mins): 1h8min - 1 Minute Total Score: 9 5 Minutes Total Score: 9 - Feeding Plan Initial Plan: Elected not to breastfeed exclusively throughout hospitalization Remarks - Remarks Remarks: Patient s/p , asymptomatic now.tolerating diet Cleared by ID to go home COVID positive. Explained in detail to patient importance of observing 24 hrs after temperature, patient refusing to stay, observation in the hospital is better than readmission Abdomen uterus well contracted,nontender Minimal lochial flow No calf tenderness Labs- HCT-40.2, WBC- 13.2 URINE CULTURE AND BLOOD CULTURE PENDING Plan- Discharge home with instructions Follow up at health center tomorrow. Home on keflex, tylenol, ibuprofen, colace Discharge Summary Problems reviewed: Yes Reason For Visit: LABOR Current Active Problems 35 weeks gestation of (Acute) Encounter for trial of labor (Acute) Procedures: Principal: Hospital Course: Temperature x1 afebrile since then.asymptomatic Plan of Treatment: Follow up at health center tomorrow IBUPROFEN 600MG 1 TAB PO Q6HRS PRN PAIN TYLENOL 650MG 1 TAB PO Q6RS PRN FEVER AND MILD PAIN kEFLEX 500MG 1 TAB PO Q8HRS X 7 DAYS COLACE 100MG 1 TAB PO DAILY PRN CONSTIPATION Condition: Stable - Instructions Diet, Activity, Other Instructions: REGULAR Follow up [facility] tomorrow TYLENOL 650MG 1 TAB PO Q6RS PRN FEVER AND MILD PAIN kEFLEX 500MG 1 TAB PO Q8HRS X 7 DAYS COLACE 100MG 1 TAB PO DAILY PRN CONSTIPATION Disposition: HOME - Home Medications Comprehensive Discharge Medication List: Ambulatory Orders Tablet 1 tab PO DAILY 12/06/19 Prescription Drug Monitoring Program (I-STOP) results: I-STOP not reviewed
--- NOTE | 2019-12-11 17:36 | PN ---
Progress Note (short form) - Note Progress Note: PATIENT WITHOUT COMPLAINTS AFEBRILE DISCUSSED OBSERVATION OVERNIGHT, PATIENT REFUSED, DESIRES TO GO HOME ASYMPTOMATIC, CLEARED BY ID VS- WNL ABDOMEN UTERUS WELL CONTRACTED, NON TENDER MINIMAL LOCHIAL FLOW, NO SMELL NO CALF TENDERNESS LABS PENDING DISCHARGE HOME WITH INSTRUCTIONS FOLLOW UP AT HEALTH CENTER TOMORROW HOME ON KEFLEX AND TYLENOL Problem List - Problems (1) Previous delivery, antepartum condition or complication Code(s): O34.219 - MATERNAL CARE FOR UNSP TYPE SCAR FROM PREVIOUS DEL (2) 35 weeks gestation of Code(s): Z3A.35 - 35 WEEKS GESTATION OF (3) Encounter for trial of labor Code(s): LYV0323 -
[2019-12-12] MEDS ORDERED: PATIENT'S OWN MEDICATION (NON-FORMULARY) (Prenatal Tablet 1 TAB) PO SCH (10:00)
--- NOTE | 2019-12-13 14:28 | PATH ---
Surgical Pathology Report Patient Name: MICAH BAKER Med. Rec. 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 Specimen(s) Received PLACENTA Clinical History at 35.1 weeks, Final Diagnosis PLACENTA: THIRD TRIMESTER PLACENTA WITH SUBCHORIONIC FIBRIN DEPOSITION. TRIVASCULAR CORD. MEMBRANES WITH NO DIAGNOSTIC ABNORMALITIES. Electronically Signed Alondra Liao M.D. Gross Description The specimen is received fresh labeled placenta and is a 386 gram, 15.5 x 12.0 x 2.8 cm. placenta with attached membranes and umbilical cord. The attached membranes are bosch, translucent with focal opacities and insert marginally. The umbilical cord measures 12 cm. in length and averages 1 cm. in diameter. The cord inserts eccentrically, 2 cm. to the nearest margin. No true knots or strictures are identified. Cut surface of the umbilical cord reveals 3 vessels. The surface is [place]-blue with minimal fibrin deposition and appropriate caliber vessels. The maternal surface is red-brown with focal defects. Sectioning reveals red-brown, spongy parenchyma. No lesions are identified. Activity Therapist sections are submitted in three cassettes as follows: 1- membrane rolls and umbilical cord; 2-3- full thickness sections of placenta. 12/12/2019 [facility]12/12/2019
== END 2019-12-11 17:30 | disposition home or self-care (01) | DRG 560 ==
LOC: JDEL 09:45 → JLDR 10:00 → JDEL 10:26 → J3N 16:40 → J3W 12-10 18:22
PROVIDERS: ADMIT Obstetrics & Gynecology; ATTEND Obstetrics & Gynecology
PROC: 10E0XZZ Delivery of Products of Conception, External Approach (ICD-10-PCS; principal; 2019-12-09)
PROC: 10907ZC Drainage of Amniotic Fluid, Therapeutic from Products of Conception, Via Natural or Artificial Opening (ICD-10-PCS; 2019-12-09)
PROC: 0HQ9XZZ Repair Perineum Skin, External Approach (ICD-10-PCS; 2019-12-09)
PROC: 0W8NXZZ Division of Female Perineum, External Approach (ICD-10-PCS; 2019-12-09)
DX: O60.14X0 Preterm labor third trimester with preterm delivery third trimester, not applicable or unspecified (principal); Z3A.35 35 weeks gestation of pregnancy; Z37.0 Single live birth; O34.219 Maternal care for unspecified type scar from previous cesarean delivery; O98.52 Other viral diseases complicating childbirth; U07.1 COVID-19; O70.0 First degree perineal laceration during delivery
CPT/HCPCS: 36415; 36600; 59409; 71045-TC-FY; 80048; 81003; 82728; 82803; 83615; 85025; 85379; 85610; 85730; 86140; 86780; 86850; 86900; 86901; 87040; 87086; 88307-TC